=== PATIENT | female | born 1935 | race Caucasian/White ===

== ENCOUNTER 2018-06-26 10:04 | Outpatient (CLI) | payer MEDICARE ==
--- NOTE | 2018-06-26 12:00 | RAD ---
CHEST TWO VIEWS: History: Dyspnea. Comparison: 08-01-12 FINDINGS: Cardiac silhouette and pulmonary vasculature are unremarkable. Mediastinum is midline with aortic juanita cification. Lungs are well inflated. No confluent airspace consolidation, pneumothorax, or pleural fl uid. There is radiopaque vertebroplasty cement associated with four consecutive mid thoracic vertebra l bodies. IMPRESSION: 1. Atherosclerosis. 2. No active cardiopulmonary abnormalities are otherwise demonstrated. POS: [facility]
== END 2018-06-26 10:05 | disposition home or self-care (01) ==
LOC: RAD 10:04
PROVIDERS: ATTEND Internal Medicine Critical Care Medicine
DX: R06.00 Dyspnea, unspecified (principal); I70.0 Atherosclerosis of aorta
CPT/HCPCS: 71046